=== PATIENT | female | born 1945 | race Caucasian/White ===

== ENCOUNTER 2020-05-17 16:19 | Observation (INO) | payer MEDICARE, OTHER ==
[2020-05-17] MEDS: Sodium Chloride 0.9% 10 ML Syringe FLUSH PRN ×2 (16:50→19:24)
[2020-05-17] MEDS ORDERED: Diltiazem 25 MG/5 ML SDV IVPUSH ONE (16:50)
--- NOTE | 2020-05-17 17:00 | CR ---
PROCEDURE INFORMATION: Exam: XR Chest, 1 View Exam date and time: 05/17/2020 4:49 PM Age: 74 years old Clinical indication: Other: Afib, HTN TECHNIQUE: Imaging protocol: XR of the chest Views: 1 view. COMPARISON: No relevant prior studies available. FINDINGS: Lungs: There are no acute infiltrates. There is a left moderate size retrocardiac density with small superior lucencies compatible with hiatal hernia. Pleural space: There are no pleural effusions. Heart/Mediastinum: There is a normal mediastinal contour. Cardiac size is upper limits in size. enhanced as result of portable technique. Bones/joints: Osseous structures are unremarkable. IMPRESSION: 1. No acute infiltrates. 2. Retrocardiac density. Differential includes hiatal hernia. Consider follow-up confirmation with two view chest.
[2020-05-17 17:17] LABS: CHLORIDE,CL 107 mmol/L (98-107); SODIUM,NA 144 mmol/L (136-145)
[2020-05-17] MEDS ORDERED: methylPREDNISolone Sodium Succinate 125 MG/2 ML SDV IVPUSH ONE (17:40)
--- NOTE | 2020-05-17 17:56 | EDM.PDOC ---
ED HPI GENERAL MEDICAL PROBLEM - General Chief Complaint: Cardiovascular Problem Stated Complaint: DR OAKLEY SENT PATIENT HERE Time Seen by Provider: 05/17/20 17:15 Source of Information: Reports: Patient, RN, RN Notes Reviewed History Limitations: Reports: No Limitations - History of Present Illness INITIAL COMMENTS - FREE TEXT/NARRATIVE: Patient presents to ER with complaint of feeling lightheaded, states her head feels full from time to time as if she is going to pass out. Patient states she puts her head down and rests and it eventually passes. Patient states her blood pressure has been running high. Patient states she has had these episodes from time to time but this past weekend she has had them several times. Patient states she takes lisinopril for elevated blood pressure, and does have some anxiety. Patient states she does take Claritin [id number], last taking it this morning. Onset: Today, Gradual - Related Data Allergies Allergy/AdvReac Type Severity Reaction Status Date / Time No Known Allergies Allergy Verified 05/17/20 16:49 Home Meds: Home Meds Lisinopril 5 mg PO DAILY 01/25/15 [History] Loratadine [Claritin] 10 mg PO DAILY PRN 01/25/15 [History] Nortriptyline 10 mg PO DAILY 01/25/15 [History] Simvastatin [Zocor] 20 mg PO DAILY 01/25/15 [History] Vit A/C/E AC/Znox/Cupric Oxide [Eye Vitamin-Minerals Tablet] 1 tab PO DAILY 02/16/16 [History] Aspirin [Sabra Chewable Aspirin] 81 mg PO DAILY 05/29/17 [History] Esomeprazole Magnesium [Nexium] 40 mg PO DAILY 05/29/17 [History] Past Medical History HEENT History: Reports: Epistaxis Cardiovascular History: Reports: High Cholesterol, Hypertension Respiratory History: Reports: None Gastrointestinal History: Reports: Diverticulosis, GERD, Hemorrhoids, Other (See Below) Other Gastrointestinal History: Zafar's erosions Genitourinary History: Reports: None 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: 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: 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 Musculoskeletal History: Reports: Fracture Neurological History: Reports: None Psychiatric History: Reports: Anxiety, Depression Endocrine/Metabolic History: Reports: Hyperparathyroidism, Obesity/BMI 30+ Hematologic History: Reports: Iron Deficiency Immunologic History: Reports: None Oncologic (Cancer) History: Reports: None Dermatologic History: Reports: None - Infectious Disease History Infectious Disease History: Reports: Chicken Pox, Measles - Past Surgical History Head Surgeries/Procedures: Reports: None HEENT Surgical History: Reports: Cataract Surgery Cardiovascular Surgical History: Reports: None GI Surgical History: Reports: Cholecystectomy, Colon, EGD Female Surgical History: Reports: Breast Biopsy, Hysterectomy, Salpingo- Oophorectomy Musculoskeletal Surgical History: Reports: None Social & Family History - Tobacco Use Smoking Status *Q: Never Smoker - Caffeine Use Caffeine Use: Reports: Coffee Caffeine Use Comment: 6 cups daily - Recreational Drug Use Recreational Drug Use: No ED ROS GENERAL - Review of Systems Review Of Systems: Comprehensive ROS is negative, except as noted in HPI. ED EXAM, GENERAL - Physical Exam Exam: See Below Exam Limited By: No Limitations General Appearance: Alert, WD/WN, Anxious, Mild Distress Eye Exam: Bilateral Eye: EOMI, Normal Inspection Ears: Normal External Exam, Hearing Grossly Normal Nose: Normal Inspection Throat/Mouth: Normal Inspection, Normal Voice, No Airway Compromise Head: Atraumatic, Normocephalic Neck: Normal Inspection, Supple, Non-Tender, Full Range of Motion Respiratory/Chest: No Respiratory Distress, Lungs Clear, Normal Breath Sounds, No Accessory Muscle Use, Chest Non-Tender, Decreased Breath Sounds Cardiovascular: Normal Peripheral Pulses, No Edema, No Gallop, No JVD, No Murmur, No Rub, Tachycardia, Irregularly Irregular Peripheral Pulses: 1+: Radial (L), Radial (R) GI/Abdominal: Normal Bowel Sounds, Soft, Non-Tender (Female) Exam: Deferred Rectal (Female) Exam: Deferred Back Exam: Normal Inspection, Full Range of Motion, NT Extremities: Normal Inspection, Normal Range of Motion, Non-Tender, Normal C apillary Refill, No Pedal Edema Neurological: Alert, Oriented, CN II-XII Intact, Normal Cognition, Normal Gait, Normal Reflexes, No Motor/Sensory Deficits Psychiatric: Normal Affect, Normal Mood, Anxious Skin Exam: Warm, Dry, Intact, Normal Color, No Rash Lymphatic: No Adenopathy Course - Vital Signs Last Recorded V/S: Last Vital Signs Temp 97.7 F 05/17/20 16:57 Pulse 83 05/17/20 17:25 Resp 14 05/17/20 17:25 BP 148/73 H 05/17/20 17:25 Pulse Ox 98 05/17/20 17:25 - Orders/Labs/Meds Orders: Active Orders 24 hr Category Date Time Status Admission Diagnosis [ADT] Stat ADT 05/17/20 17:39 Ordered Admission Status [Patient Status] [ADT] Routine ADT 05/17/20 17:39 Active EKG Documentation Completion [RC] STAT Care 05/17/20 16:36 Active Peripheral IV Care [RC] . DIRECTED Care 05/17/20 16:42 Active Sodium Chloride 0.9% [Saline Flush] Med 05/17/20 16:36 Active 10 ml FLUSH ASDIRECTED PRN Peripheral IV Insertion Adult [OM.PC] Stat Oth 05/17/20 16:36 Ordered Medication Orders Sodium Chloride (Saline Flush) 10 ml FLUSH ASDIRECTED PRN PRN Reason: Keep Vein Open Last Admin: 05/17/20 16:50 Dose: 10 ml Documented by: EDGARD Labs: Laboratory Tests 05/17/20 05/17/20 05/17/20 Range/Units 16:44 16:44 16:44 WBC 7.9 (5.0-10.0) 10^3/uL RBC 4.89 (4.2-5.4) 10^6/uL Hgb 14.7 (12.0-16.0) g/dL Hct 44.2 (37.0-47.0) % MCV 90.4 (80-100) fL MCH 30.1 (27.0-34.0) pg MCHC 33.3 (33.0-35.0) g/dL Plt Count 194 (150-450) 10^3/uL Neut % (Auto) 75.2 (42.2-75.2) % Lymph % (Auto) 19.0 L (20.5-50.1) % [place] % (Auto) 5.2 (2-8) % Eos % (Auto) 0.3 L (1.0-3.0) % Baso % (Auto) 0.3 (0.0-1.0) % PT 9.8 (9.0-12.0) SEC INR 1.0 (0.9-1.2) Sodium 144 (136-145) mmol/L Potassium 4.0 (3.5-5.1) mmol/L Chloride 107 (98-107) mmol/L Carbon Dioxide 29 (21-32) mmol/L Anion Gap 12.0 (7-13) mEq/L BUN 16 (7-18) mg/dL Creatinine 1.10 H (0.55-1.02) mg/dL Est Cr Clr Drug Dosing 33.86 mL/min Estimated GFR (MDRD) 49 BUN/Creatinine Ratio 14.5 (No establ ref range) Glucose 111 H (74-99) mg/dL Calcium 9.3 (8.5-10.1) mg/dL Total Bilirubin 0.3 (0.2-1.0) mg/dL AST 18 (15-37) U/L ALT 25 (14-59) U/L Alkaline Phosphatase 107 (46-116) U/L Troponin I < 0.017 (0.000-0.056) ng/mL B-Natriuretic Peptide 84 (0-100) pg/ml Total Protein 7.7 (6.4-8.2) g/dL Albumin 3.6 (3.4-5.0) g/dL Globulin 4.1 Albumin/Globulin Ratio 0.9 Urine Color (YELLOW) Urine Appearance (CLEAR) Urine pH (5.0-9.0) Ur Specific [place] (1.005-1.030) Urine Protein (NEGATIVE) Urine Glucose (UA) (NEGATIVE) Urine Ketones (NEGATIVE) Urine Occult Blood (NEGATIVE) Urine Nitrite (NEGATIVE) Urine Bilirubin (NEGATIVE) Urine Urobilinogen (0.2-1.0) mg/dL Ur Leukocyte Esterase (NEGATIVE) 05/17/20 Range/Units 17:24 WBC (5.0-10.0) 10^3/uL RBC (4.2-5.4) 10^6/uL Hgb (12.0-16.0) g/dL Hct (37.0-47.0) % MCV (80-100) fL MCH (27.0-34.0) pg MCHC (33.0-35.0) g/dL Plt Count (150-450) 10^3/uL Neut % (Auto) (42.2-75.2) % Lymph % (Auto) (20.5-50.1) % [place] % (Auto) (2-8) % Eos % (Auto) (1.0-3.0) % Baso % (Auto) (0.0-1.0) % PT (9.0-12.0) SEC INR (0.9-1.2) Sodium (136-145) mmol/L Potassium (3.5-5.1) mmol/L Chloride (98-107) mmol/L Carbon Dioxide (21-32) mmol/L Anion Gap (7-13) mEq/L BUN (7-18) mg/dL Creatinine (0.55-1.02) mg/dL Est Cr Clr Drug Dosing mL/min Estimated GFR (MDRD) BUN/Creatinine Ratio (No establ ref range) Glucose (74-99) mg/dL Calcium (8.5-10.1) mg/dL Total Bilirubin (0.2-1.0) mg/dL AST (15-37) U/L ALT (14-59) U/L Alkaline Phosphatase (46-116) U/L Troponin I (0.000-0.056) ng/mL B-Natriuretic Peptide (0-100) pg/ml Total Protein (6.4-8.2) g/dL Albumin (3.4-5.0) g/dL Globulin Albumin/Globulin Ratio Urine Color Yellow (YELLOW) Urine Appearance Clear (CLEAR) Urine pH 7.0 (5.0-9.0) Ur Specific [place] 1.020 (1.005-1.030) Urine Protein Negative (NEGATIVE) Urine Glucose (UA) Negative (NEGATIVE) Urine Ketones Negative (NEGATIVE) Urine Occult Blood Negative (NEGATIVE) Urine Nitrite Negative (NEGATIVE) Urine Bilirubin Negative (NEGATIVE) Urine Urobilinogen 0.2 (0.2-1.0) mg/dL Ur Leukocyte Esterase Negative (NEGATIVE) Meds: Medications Generic Name Dose Route Start Last Admin Trade Name Freq PRN Reason Stop Dose Admin Sodium Chloride 10 ml 05/17/20 16:36 05/17/20 16:50 Saline Flush FLUSH 10 ml ASDIRECTED PRN Administration Keep Vein Open Discontinued Medications Generic Name Dose Route Start Last Admin Trade Name Freq PRN Reason Stop Dose Admin Diltiazem HCl 20 mg 05/17/20 16:50 05/17/20 17:03 Diltiazem IVPUSH 05/17/20 16:51 20 mg ONETIME ONE Administration Methylprednisolone Sodium Succinate 125 mg 05/17/20 17:40 Solu-Medrol IVPUSH 05/17/20 17:41 ONETIME ONE - Re-Assessments/Exams Free Text/Narrative Re-Assessment/Exam: 05/17/20 17:57 Discussed patient case with Dr. Wheatley who agreed to accept the patient for observation admission. Departure - Departure Time of Disposition: 17:56 Disposition: Refer to Observation Reason for Transfer *Q: Other Condition: Good Clinical Impression: Tachycardia Hypertensive heart disease Qualifiers: Heart failure presence: without heart failure Qualified Code(s): I11.9 - Hypertensive heart disease without heart failure Sepsis Event Note (ED) - Evaluation Sepsis Screening Result: No Definite Risk - Focused Exam Vital Signs: Vital Signs Temp Pulse Resp BP Pulse Ox 05/17/20 17:25 83 14 148/73 H 98 05/17/20 16:58 114 H 05/17/20 16:57 97.7 F 105 H 14 159/89 H 96 - My Orders Last 24 Hours: My Active Orders 05/17/20 16:36 EKG Documentation Completion [RC] STAT Sodium Chloride 0.9% [Saline Flush] 10 ml FLUSH ASDIRECTED PRN Peripheral IV Insertion Adult [OM.PC] Stat 05/17/20 16:42 Peripheral IV Care [RC] . DIRECTED 05/17/20 17:39 Admission Diagnosis [ADT] Stat Admission Status [Patient Status] [ADT] Routine - Assessment/Plan Last 24 Hours: My Active Orders 05/17/20 16:36 EKG Documentation Completion [RC] STAT Sodium Chloride 0.9% [Saline Flush] 10 ml FLUSH ASDIRECTED PRN Peripheral IV Insertion Adult [OM.PC] Stat 05/17/20 16:42 Peripheral IV Care [RC] . DIRECTED 05/17/20 17:39 Admission Diagnosis [ADT] Stat Admission Status [Patient Status] [ADT] Routine
[2020-05-17] MEDS ORDERED: Ondansetron 4 MG/2 ML SDV IVPUSH PRN (18:22)
[2020-05-17] MEDS ORDERED: Acetaminophen 325 MG Tab PO PRN (18:22)
[2020-05-17] MEDS ORDERED: Lactated Ringers 1,000 ML IV SCH (18:30)
--- NOTE | 2020-05-17 18:33 | PCM.HP ---
H&P History of Present Illness - General Date of Service: 05/17/20 Admit Problem/Dx: Admission Diagnosis/Problem Admission Diagnosis/Problem Tachycardia Source of Information: Patient History Limitations: Reports: No Limitations - History of Present Illness Initial Comments - Free Text/Narative: Macario 75-year-old lady with past medical history significant for hypertensi on, hyperlipidemia, anemia, depression who presented to the ED for evaluation of lightheadedness and near syncope. Patient reports she has been having sensation of passing out for the past few days. He reports feeling weak from lower extremity and moving all the way up. This will be accompanied by feeling lightheaded and the sensation of being passed out. When she sits down and place her head down she gets relief. For the last 48 hours the episode has been very frequent. So she presented to the ED for evaluation. She denies vertigo. Denies palpitations, chest pain, shortness of breath. No fever or chills. No abdominal pain, nausea, vomiting, diarrhea. Denies lower extremity weakness. Patient is on lisinopril for high blood pressure. Of note patient has history of previous episode. She was admitted in the hospital monitored overnight and discharged. In the ED she was hypertensive. EKG showed arrhythmia with increased heart rate. He was given Cardizem IV push. She converted to normal sinus rhythm with improved heart rate. Admission was requested for further management. Onset of Symptoms: Reports: Gradual Duration of Symptoms: Reports: Day(s): Location: Reports: Generalized Quality: Reports: Ache Severity: Mild Improves with: Reports: None Worsens with: Reports: None Associated Symptoms: Reports: Weakness, Other (dizziness) - Related Data Allergies/Adverse Reactions: Allergies Allergy/AdvReac Type Severity Reaction Status Date / Time No Known Allergies Allergy Verified 05/17/20 16:49 Home Medications: Home Meds Lisinopril 10 mg PO DAILY 01/25/15 [History] Nortriptyline 10 mg PO DAILY 01/25/15 [History] Simvastatin [Zocor] 20 mg PO DAILY 01/25/15 [History] Vit A/C/E AC/Znox/Cupric Oxide [Eye Vitamin-Minerals Tablet] 1 tab PO DAILY 02/16/16 [History] Aspirin [Sabra Chewable Aspirin] 81 mg PO DAILY 05/29/17 [History] Esomeprazole Magnesium [Nexium] 40 mg PO DAILY 05/29/17 [History] Cetirizine [ZyrTEC] 10 mg PO DAILY 05/17/20 [History] Ferrous Sulfate [Iron] 325 mg PO BEDTIME 05/17/20 [History] Meclizine [Antivert] 25 mg PO ASDIRECTED 05/17/20 [History] Past Medical History HEENT History: Reports: Epistaxis Cardiovascular History: Reports: High Cholesterol, Hypertension Other Cardiovascular History: leaky valves Respiratory History: Reports: None Gastrointestinal History: Reports: Diverticulosis, GERD, Hemorrhoids, Other (See Below) Other Gastrointestinal History: Zafar's erosions Genitourinary History: Reports: None 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 Musculoskeletal History: Reports: Fracture Neurological History: Reports: None Psychiatric History: Reports: Anxiety, Depression Endocrine/Metabolic History: Reports: Hyperparathyroidism, Obesity/BMI 30+ Hematologic History: Reports: Iron Deficiency Immunologic History: Reports: None Oncologic (Cancer) History: Reports: None Dermatologic History: Reports: None - Infectious Disease History Infectious Disease History: Reports: Chicken Pox, Measles - Past Surgical History Head Surgeries/Procedures: Reports: None HEENT Surgical History: Reports: Cataract Surgery Cardiovascular Surgical History: Reports: None GI Surgical History: Reports: Cholecystectomy, Colon, EGD Female Surgical History: Reports: Breast Biopsy, Hysterectomy, Salpingo- Oophorectomy Musculoskeletal Surgical History: Reports: None Social & Family History - Family History Family Medical History: Noncontributory - Tobacco Use Smoking Status *Q: Never Smoker Second Hand Smoke Exposure: No - Caffeine Use Caffeine Use: Reports: Coffee Caffeine Use Comment: 6 cups daily - Recreational Drug Use Recreational Drug Use: No H&P Review of Systems - Review of Systems: Review Of Systems: See Below General: Reports: No Symptoms HEENT: Reports: No Symptoms Pulmonary: Reports: No Symptoms Cardiovascular: Reports: No Symptoms Gastrointestinal: Reports: No Symptoms Genitourinary: Reports: No Symptoms Musculoskeletal: Reports: No Symptoms Skin: Reports: No Symptoms Psychiatric: Reports: No Symptoms Neurological: Reports: No Symptoms Hematologic/Lymphatic: Reports: No Symptoms Immunologic: Reports: No Symptoms Exam - Exam Exam: See Below - Vital Signs Vital Signs: Last Vital Signs Temp 96.2 F L 05/17/20 17:56 Pulse 83 05/17/20 17:56 Resp 16 05/17/20 17:56 BP 153/90 H 05/17/20 17:56 Pulse Ox 98 05/17/20 17:56 Weight: 206 lb 6.4 oz - Exam Quality Assessment: DVT Prophylaxis General: Alert, Oriented, 4 HEENT: PERRLA, Hearing Intact, Mucosa Moist & [place], Nares Patent, Normal Nasal Septum, Posterior Pharynx Clear, Conjunctiva Clear, EOMI, EACs Clear, TMs Clear Neck: Supple, Trachea Midline, 2 Lungs: Clear to Auscultation, Normal Respiratory Effort Cardiovascular: Regular Rate, Regular Rhythm GI/Abdominal Exam: Normal Bowel Sounds, Soft, Non-Tender, No Organomegaly, No Distention, No Abnormal Bruit, No Mass, Pelvis Stable (Female) Exam: Normal External Exam, Normal Speculum Exam, Normal Bimanual Exam Rectal (Female) Exam: Normal Exam, Normal Rectal Tone Back Exam: Normal Inspection, Full Range of Motion, NT Extremities: Normal Inspection, Normal Range of Motion, Non-Tender, No Pedal Edema, Normal Capillary Refill Skin: Warm, Dry, Intact Neurological: Cranial Nerves Intact, Reflexes Equal Bilateral Neuro Extensive - Mental Status: Alert, Oriented x3, Normal Mood/Affect, Normal Cognition Neuro Extensive - Motor, Sensory, Reflexes: CN II-XII Intact, Normal Gait, Normal Reflexes Psychiatric: Alert, Normal Affect, Normal Mood - Patient Data Lab Results Last 24 hrs: Laboratory Results - last 24 hr 05/17/20 05/17/20 05/17/20 Range/Units 16:44 16:44 16:44 WBC 7.9 (5.0-10.0) 10^3/uL RBC 4.89 (4.2-5.4) 10^6/uL Hgb 14.7 (12.0-16.0) g/dL Hct 44.2 (37.0-47.0) % MCV 90.4 (80-100) fL MCH 30.1 (27.0-34.0) pg MCHC 33.3 (33.0-35.0) g/dL Plt Count 194 (150-450) 10^3/uL Neut % (Auto) 75.2 (42.2-75.2) % Lymph % (Auto) 19.0 L (20.5-50.1) % [place] % (Auto) 5.2 (2-8) % Eos % (Auto) 0.3 L (1.0-3.0) % Baso % (Auto) 0.3 (0.0-1.0) % PT 9.8 (9.0-12.0) SEC INR 1.0 (0.9-1.2) Sodium 144 (136-145) mmol/L Potassium 4.0 (3.5-5.1) mmol/L Chloride 107 (98-107) mmol/L Carbon Dioxide 29 (21-32) mmol/L Anion Gap 12.0 (7-13) mEq/L BUN 16 (7-18) mg/dL Creatinine 1.10 H (0.55-1.02) mg/dL Est Cr Clr Drug Dosing 33.86 mL/min Estimated GFR (MDRD) 49 BUN/Creatinine Ratio 14.5 (No establ ref range) Glucose 111 H (74-99) mg/dL Calcium 9.3 (8.5-10.1) mg/dL Total Bilirubin 0.3 (0.2-1.0) mg/dL AST 18 (15-37) U/L ALT 25 (14-59) U/L Alkaline Phosphatase 107 (46-116) U/L Troponin I < 0.017 (0.000-0.056) ng/mL B-Natriuretic Peptide 84 (0-100) pg/ml Total Protein 7.7 (6.4-8.2) g/dL Albumin 3.6 (3.4-5.0) g/dL Globulin 4.1 Albumin/Globulin Ratio 0.9 Urine Color (YELLOW) Urine Appearance (CLEAR) Urine pH (5.0-9.0) Ur Specific [place] (1.005-1.030) Urine Protein (NEGATIVE) Urine Glucose (UA) (NEGATIVE) Urine Ketones (NEGATIVE) Urine Occult Blood (NEGATIVE) Urine Nitrite (NEGATIVE) Urine Bilirubin (NEGATIVE) Urine Urobilinogen (0.2-1.0) mg/dL Ur Leukocyte Esterase (NEGATIVE) 05/17/20 Range/Units 17:24 WBC (5.0-10.0) 10^3/uL RBC (4.2-5.4) 10^6/uL Hgb (12.0-16.0) g/dL Hct (37.0-47.0) % MCV (80-100) fL MCH (27.0-34.0) pg MCHC (33.0-35.0) g/dL Plt Count (150-450) 10^3/uL Neut % (Auto) (42.2-75.2) % Lymph % (Auto) (20.5-50.1) % [place] % (Auto) (2-8) % Eos % (Auto) (1.0-3.0) % Baso % (Auto) (0.0-1.0) % PT (9.0-12.0) SEC INR (0.9-1.2) Sodium (136-145) mmol/L Potassium (3.5-5.1) mmol/L Chloride (98-107) mmol/L Carbon Dioxide (21-32) mmol/L Anion Gap (7-13) mEq/L BUN (7-18) mg/dL Creatinine (0.55-1.02) mg/dL Est Cr Clr Drug Dosing mL/min Estimated GFR (MDRD) BUN/Creatinine Ratio (No establ ref range) Glucose (74-99) mg/dL Calcium (8.5-10.1) mg/dL Total Bilirubin (0.2-1.0) mg/dL AST (15-37) U/L ALT (14-59) U/L Alkaline Phosphatase (46-116) U/L Troponin I (0.000-0.056) ng/mL B-Natriuretic Peptide (0-100) pg/ml Total Protein (6.4-8.2) g/dL Albumin (3.4-5.0) g/dL Globulin Albumin/Globulin Ratio Urine Color Yellow (YELLOW) Urine Appearance Clear (CLEAR) Urine pH 7.0 (5.0-9.0) Ur Specific [place] 1.020 (1.005-1.030) Urine Protein Negative (NEGATIVE) Urine Glucose (UA) Negative (NEGATIVE) Urine Ketones Negative (NEGATIVE) Urine Occult Blood Negative (NEGATIVE) Urine Nitrite Negative (NEGATIVE) Urine Bilirubin Negative (NEGATIVE) Urine Urobilinogen 0.2 (0.2-1.0) mg/dL Ur Leukocyte Esterase Negative (NEGATIVE) Result Diagrams: 05/17/20 16:44 05/17/20 16:44 - Problem List (1) Near syncope SNOMED Code(s): 979339366 ICD Code: R55 - SYNCOPE AND COLLAPSE Status: Acute Current Visit: Yes Problem List Initiated/Reviewed/Updated: Yes Orders Last 24hrs: Active Orders 24 hr Category Date Time Status Admission Diagnosis [ADT] Stat ADT 05/17/20 17:39 Ordered Admission Status [Patient Status] [ADT] Routine ADT 05/17/20 17:39 Active Cardiac Monitoring [RC] CONTINUOUS Care 05/17/20 18:23 Ordered EKG Documentation Completion [RC] STAT Care 05/17/20 16:36 Active Height and Weight [RC] DAILY Care 05/17/20 18:22 Ordered Intake and Output [RC] QSHIFT Care 05/17/20 18:23 Ordered Notify Provider Vital Signs [RC] ASDIRECTED Care 05/17/20 18:23 Ordered Oxygen Therapy [RC] PRN Care 05/17/20 18:23 Ordered Peripheral IV Care [RC] . DIRECTED Care 05/17/20 16:42 Active Up With Assistance [RC] ASDIRECTED Care 05/17/20 18:22 Ordered VTE/DVT Education [RC] PER UNIT ROUTINE Care 05/17/20 18:23 Ordered Vital Signs [RC] Q4H Care 05/17/20 18:23 Ordered PT Evaluation and Treatment [CONS] Routine Cons 05/17/20 18:22 Ordered Heart Healthy Diet [DIET] Diet 05/17/20 Dinner Ordered MAGNESIUM [CHEM] Routine Lab 05/17/20 18:22 Ordered PHOSPHORUS [CHEM] Routine Lab 05/17/20 18:22 Ordered TSH ULTRASENSITIVE [CHEM] Routine Lab 05/17/20 18:26 Ordered Acetaminophen [TylenoL] Med 05/17/20 18:22 Ordered 650 mg PO Q4H PRN Heparin Sodium Med 05/17/20 21:00 Ordered 5,000 units SUBCUT Q12HR Lactated Ringers [Ringers, Lactated] 1,000 ml Med 05/17/20 18:30 Ordered IV ASDIRECTED Ondansetron [Zofran] Med 05/17/20 18:22 Ordered 4 mg IVPUSH Q6H PRN Sodium Chloride 0.9% [Saline Flush] Med 05/17/20 16:36 Active 10 ml FLUSH ASDIRECTED PRN Peripheral IV Insertion Adult [OM.PC] Stat Oth 05/17/20 16:36 Ordered Resuscitation Status Routine Resus Stat 05/17/20 18:22 Ordered Medication Orders Acetaminophen (Tylenol) 650 mg PO Q4H PRN PRN Reason: Pain (Mild 1-3)/fever Heparin Sodium (Porcine) (Heparin Sodium) 5,000 units SUBCUT Q12HR TANK Lactated Ringer's (Ringers, Lactated) 1,000 mls @ 75 mls/hr IV ASDIRECTED TANK Ondansetron HCl (Zofran) 4 mg IVPUSH Q6H PRN PRN Reason: Nausea/Vomiting Sodium Chloride (Saline Flush) 10 ml FLUSH ASDIRECTED PRN PRN Reason: Keep Vein Open Last Admin: 05/17/20 16:50 Dose: 10 ml Documented by: EDGARD Assessment/Plan Comment:: #Presyncopal syndrome due to cardiac arrhythmia -Patient presented to the ED for evaluation of having sensation of passing out associated with weakness and dizziness -EKG shows sinus tachycardia with regular rate. She was hypertensive in the ED. -She received IV Cardizem. She converted to normal sinus rhythm. -Admit to medical floor -On telemetry -Monitor vitals -Echo if available -Start patient on metoprolol -Fall precautions -PT/OT -TSH -Cardiology off upon discharge #Controlled hypertension -Continue lisinopril -Add metoprolol -BP #Hyperlipidemia -Continue Home medication #Depression -Continue home medication #Full code #Cardiac diet
[2020-05-17] MEDS ORDERED: Metoprolol Tartrate 50 MG Tab PO SCH (18:45)
[2020-05-17] MEDS ORDERED: Meclizine 12.5 MG Tab PO PRN (20:45)
[2020-05-17] MEDS ORDERED: Ferrous Sulfate 325 MG Tab PO SCH (21:00)
[2020-05-17] MEDS: Heparin Sodium 5,000 Units/ML Vial SUBCUT SCH (21:20)
[2020-05-17] MEDS ORDERED: Simvastatin 10 MG Tab PO ONE (22:30)
[2020-05-18] MEDS ORDERED: Omeprazole 20 MG Cap.CR PO SCH ×2 (06:00→09:00)
[2020-05-18 08:36] VITALS: BP 154/78; PULSE 66
[2020-05-18] MEDS: Heparin Sodium 5,000 Units/ML Vial SUBCUT SCH (08:36)
[2020-05-18] MEDS: Nortriptyline 10 MG Cap PO SCH ×2 (08:36→08:38)
[2020-05-18] MEDS ORDERED: Lisinopril 5 MG Tab PO SCH (09:00)
[2020-05-18] MEDS ORDERED: Metoprolol Tartrate 50 MG Tab PO SCH (09:00)
[2020-05-18] MEDS ORDERED: Simvastatin 10 MG Tab PO SCH ×2 (09:00→21:00)
[2020-05-18] MEDS ORDERED: Aspirin 81 MG Tab.Chew PO SCH (09:00)
--- NOTE | 2020-05-18 09:42 | PCM.DCSUM1 ---
Discharge Summary - Hospital Course Free Text/Narrative:: Macario 75-year-old lady with past medical history significant for hypertension, hyperlipidemia, anemia, depression who presented to the ED for evaluation of lightheadedness and near syncope. She was admitted for presyncope likely due to cardiac arrhythmia. Her EKG on admit showed tachycardia with rates in the 140s to 150s with irregular rate. Pressure was uncontrolled. She received IV push of Cardizem and she converted to sinus rhythm. She was started on metoprolol for rate control on admit. She remained stable overnight. Her stay was uncomplicated. She was discharged in stable condition with plan to follow-up with PCP and cardiology. Diagnosis: Stroke: No - Discharge Data Discharge Date: 05/18/20 Discharge Disposition: Home, Self-Care 01 Condition: Good - Referral to Home Health Primary Care Physician: PCP None - Discharge Diagnosis/Problem(s) (1) Near syncope SNOMED Code(s): 378352346 ICD Code: R55 - SYNCOPE AND COLLAPSE Status: Acute Current Visit: Yes - Patient Summary/Data Consults: Consultations 05/17/20 18:22 PT Evaluation and Treatment [CONS] Routine - Patient Instructions Diet: Heart Healthy Diet Activity: As Tolerated Driving: May Drive Today Showering/Bathing: May Shower Notify Provider of: Fever, Increased Pain, Swelling and Redness, Nausea and/or Vomiting - Discharge Plan *PRESCRIPTION DRUG MONITORING PROGRAM REVIEWED*: No *COPY OF PRESCRIPTION DRUG MONITORING REPORT IN PATIENT SIMONE: No Prescriptions/Med Rec: Metoprolol Tartrate [Lopressor] 50 mg PO BID #60 tablet Home Medications: Home Meds Lisinopril 10 mg PO DAILY 01/25/15 [History] Nortriptyline 10 mg PO DAILY 01/25/15 [History] Simvastatin [Zocor] 20 mg PO DAILY 01/25/15 [History] Vit A/C/E AC/Znox/Cupric Oxide [Eye Vitamin-Minerals Tablet] 1 tab PO DAILY 02/16/16 [History] Aspirin [Sabra Chewable Aspirin] 81 mg PO DAILY 05/29/17 [History] Esomeprazole Magnesium [Nexium] 40 mg PO DAILY 05/29/17 [History] Cetirizine [ZyrTEC] 10 mg PO DAILY 05/17/20 [History] Ferrous Sulfate [Iron] 325 mg PO BEDTIME 05/17/20 [History] Meclizine [Antivert] 25 mg PO ASDIRECTED 05/17/20 [History] Metoprolol Tartrate [Lopressor] 50 mg PO BID #60 tablet 05/18/20 [Rx] Oxygen Therapy Mode: Room Air Patient Handouts: Metoprolol tablets Forms: ED Department Discharge Referrals: PCP,None [Primary Care Provider] - - Discharge Summary/Plan Comment DC Time >30 min.: Yes - Patient Data Vitals - Most Recent: Last Vital Signs Temp 98.6 F 05/18/20 08:00 Pulse 66 05/18/20 08:36 Resp 18 05/18/20 08:00 BP 154/78 H 05/18/20 08:36 Pulse Ox 97 05/18/20 08:00 Weight - Most Recent: 208 lb 12.8 oz I&O - Last 24 hours: Intake & Output 05/17/20 05/18/20 05/18/20 22:59 06:59 14:59 Intake Total 466 884 Output Total 300 200 Balance 166 684 Lab Results - Last 24 hrs: Laboratory Results - last 24 hr 05/17/20 05/17/20 05/17/20 Range/Units 16:44 16:44 16:44 WBC 7.9 (5.0-10.0) 10^3/uL RBC 4.89 (4.2-5.4) 10^6/uL Hgb 14.7 (12.0-16.0) g/dL Hct 44.2 (37.0-47.0) % MCV 90.4 (80-100) fL MCH 30.1 (27.0-34.0) pg MCHC 33.3 (33.0-35.0) g/dL Plt Count 194 (150-450) 10^3/uL Neut % (Auto) 75.2 (42.2-75.2) % Lymph % (Auto) 19.0 L (20.5-50.1) % [place] % (Auto) 5.2 (2-8) % Eos % (Auto) 0.3 L (1.0-3.0) % Baso % (Auto) 0.3 (0.0-1.0) % PT 9.8 (9.0-12.0) SEC INR 1.0 (0.9-1.2) Sodium 144 (136-145) mmol/L Potassium 4.0 (3.5-5.1) mmol/L Chloride 107 (98-107) mmol/L Carbon Dioxide 29 (21-32) mmol/L Anion Gap 12.0 (7-13) mEq/L BUN 16 (7-18) mg/dL Creatinine 1.10 H (0.55-1.02) mg/dL Est Cr Clr Drug Dosing 33.86 mL/min Estimated GFR (MDRD) 49 BUN/Creatinine Ratio 14.5 (No establ ref range) Glucose 111 H (74-99) mg/dL Calcium 9.3 (8.5-10.1) mg/dL Phosphorus (2.6-4.7) mg/dL Magnesium (1.8-2.4) mg/dL Total Bilirubin 0.3 (0.2-1.0) mg/dL AST 18 (15-37) U/L ALT 25 (14-59) U/L Alkaline Phosphatase 107 (46-116) U/L Troponin I < 0.017 (0.000-0.056) ng/mL B-Natriuretic Peptide 84 (0-100) pg/ml Total Protein 7.7 (6.4-8.2) g/dL Albumin 3.6 (3.4-5.0) g/dL Globulin 4.1 Albumin/Globulin Ratio 0.9 TSH, Ultra Sensitive (0.36-3.74) uIU/mL Urine Color (YELLOW) Urine Appearance (CLEAR) Urine pH (5.0-9.0) Ur Specific [place] (1.005-1.030) Urine Protein (NEGATIVE) Urine Glucose (UA) (NEGATIVE) Urine Ketones (NEGATIVE) Urine Occult Blood (NEGATIVE) Urine Nitrite (NEGATIVE) Urine Bilirubin (NEGATIVE) Urine Urobilinogen (0.2-1.0) mg/dL Ur Leukocyte Esterase (NEGATIVE) 05/17/20 05/17/20 Range/Units 16:44 17:24 WBC (5.0-10.0) 10^3/uL RBC (4.2-5.4) 10^6/uL Hgb (12.0-16.0) g/dL Hct (37.0-47.0) % MCV (80-100) fL MCH (27.0-34.0) pg MCHC (33.0-35.0) g/dL Plt Count (150-450) 10^3/uL Neut % (Auto) (42.2-75.2) % Lymph % (Auto) (20.5-50.1) % [place] % (Auto) (2-8) % Eos % (Auto) (1.0-3.0) % Baso % (Auto) (0.0-1.0) % PT (9.0-12.0) SEC INR (0.9-1.2) Sodium (136-145) mmol/L Potassium (3.5-5.1) mmol/L Chloride (98-107) mmol/L Carbon Dioxide (21-32) mmol/L Anion Gap (7-13) mEq/L BUN (7-18) mg/dL Creatinine (0.55-1.02) mg/dL Est Cr Clr Drug Dosing mL/min Estimated GFR (MDRD) BUN/Creatinine Ratio (No establ ref range) Glucose (74-99) mg/dL Calcium (8.5-10.1) mg/dL Phosphorus 3.2 (2.6-4.7) mg/dL Magnesium 2.3 (1.8-2.4) mg/dL Total Bilirubin (0.2-1.0) mg/dL AST (15-37) U/L ALT (14-59) U/L Alkaline Phosphatase (46-116) U/L Troponin I (0.000-0.056) ng/mL B-Natriuretic Peptide (0-100) pg/ml Total Protein (6.4-8.2) g/dL Albumin (3.4-5.0) g/dL Globulin Albumin/Globulin Ratio TSH, Ultra Sensitive 1.60 (0.36-3.74) uIU/mL Urine Color Yellow (YELLOW) Urine Appearance Clear (CLEAR) Urine pH 7.0 (5.0-9.0) Ur Specific [place] 1.020 (1.005-1.030) Urine Protein Negative (NEGATIVE) Urine Glucose (UA) Negative (NEGATIVE) Urine Ketones Negative (NEGATIVE) Urine Occult Blood Negative (NEGATIVE) Urine Nitrite Negative (NEGATIVE) Urine Bilirubin Negative (NEGATIVE) Urine Urobilinogen 0.2 (0.2-1.0) mg/dL Ur Leukocyte Esterase Negative (NEGATIVE) Med Orders - Current: Current Medications Acetaminophen (Tylenol) 650 mg PO Q4H PRN PRN Reason: Pain (Mild 1-3)/fever Aspirin (Aspirin) 81 mg PO DAILY [facility] Last Admin: 05/18/20 08:35 Dose: 81 mg Documented by: Ferrous Sulfate (Ferrous Sulfate) 325 mg PO BEDTIME [facility], [facility] Last Admin: 05/17/20 21:20 Dose: 325 mg Documented by: Heparin Sodium (Porcine) (Heparin Sodium) 5,000 units SUBCUT Q12HR [facility], [facility]1983 Last Admin: 05/18/20 08:36 Dose: 5,000 units Documented by: Lactated Ringer's (Ringers, Lactated) 1,000 mls @ 75 mls/hr IV ASDIRECTED [facility], [facility] Last Admin: 05/17/20 19:24 Dose: 75 mls/hr Documented by: Lisinopril (Prinivil) 10 mg PO DAILY [facility] Last Admin: 05/18/20 08:35 Dose: 10 mg Documented by: Meclizine HCl (Antivert) 25 mg PO ASDIRECTED PRN PRN Reason: NAUSEA Metoprolol Tartrate (Lopressor) 50 mg PO BID [facility] Last Admin: 05/18/20 08:36 Dose: 50 mg Documented by: Non-Formulary Medication (Cetirizine [Zyrtec]) 10 mg PO DAILY [facility] Nortriptyline HCl (Nortriptyline) 10 mg PO DAILY [facility] Last Admin: 05/18/20 08:38 Dose: Not Given Documented by: Omeprazole (Omeprazole) 40 mg PO DAILY@0600 [facility] Last Admin: 05/18/20 06:05 Dose: 40 mg Documented by: Ondansetron HCl (Zofran) 4 mg IVPUSH Q6H PRN PRN Reason: Nausea/Vomiting Simvastatin (Zocor) 20 mg PO BEDTIME [facility] Sodium Chloride (Saline Flush) 10 ml FLUSH ASDIRECTED PRN PRN Reason: Keep Vein Open Last Admin: 05/17/20 19:24 Dose: 10 ml Documented by: Discontinued Medications Diltiazem HCl (Diltiazem) 20 mg IVPUSH ONETIME ONE Stop: 05/17/20 16:51 Last Admin: 05/17/20 17:03 Dose: 20 mg Documented by: Methylprednisolone Sodium Succinate (Solu-Medrol) 125 mg IVPUSH ONETIME ONE Stop: 05/17/20 17:41 Metoprolol Tartrate (Lopressor) 50 mg PO Q12H TANK Last Admin: 05/17/20 19:22 Dose: 50 mg Documented by: Omeprazole (Omeprazole) 40 mg PO DAILY TANK Simvastatin (Zocor) 20 mg PO DAILY TANK Simvastatin (Zocor) 20 mg PO ONETIME ONE Stop: 05/17/20 22:31 Last Admin: 05/17/20 22:18 Dose: 20 mg Documented by:
== END 2020-05-18 10:54 | disposition home or self-care (01) ==
LOC: DL.ED 16:19 → DL.MS 17:39
PROVIDERS: ADMIT Student in an Organized Health Care Education/Training Program; ATTEND Student in an Organized Health Care Education/Training Program
DX: R55 Syncope and collapse (principal); R00.0 Tachycardia, unspecified; R53.1 Weakness; R42 Dizziness and giddiness; E78.00 Pure hypercholesterolemia, unspecified; D64.9 Anemia, unspecified; I10 Essential (primary) hypertension; K21.9 Gastro-esophageal reflux disease without esophagitis; E66.9 Obesity, unspecified; F41.9 Anxiety disorder, unspecified; F32.9 Major depressive disorder, single episode, unspecified; E21.3 Hyperparathyroidism, unspecified; Z79.82 Long term (current) use of aspirin; Z79.899 Other long term (current) drug therapy; Z68.39 Body mass index [BMI] 39.0-39.9, adult
CPT/HCPCS: 36415; 71045; 80053; 81003; 83735; 83880; 84100; 84443; 84484; 85025; 85610; 93005; 96361; 96372; 96374; 99285-25; A9270-GY; G0378; J1644; J3490; J7120